=== PATIENT | male | born 1975 | race Caucasian/White ===

== ENCOUNTER 2024-03-25 18:45 | Emergency (ER) | payer SELFPAY ==
[2024-03-25] MEDS: predniSONE 20 MG Tab PO ONE (20:02)
== END 2024-03-25 20:05 | disposition home or self-care (01) ==
LOC: FB.ED 18:45
DX: T78.40XA Allergy, unspecified, initial encounter (principal); Z79.899 Other long term (current) drug therapy
CPT/HCPCS: 99283; J7512